=== PATIENT | female | born 1950 | race Asian ===

== ENCOUNTER 2023-02-20 10:48 | Outpatient (CLI) | payer MEDICARE, SELFPAY ==
[2023-02-20 11:16] LABS: Basophils Percent Auto 0.4 % (0.2-1.2); Eosinophils Percent Auto 0.4 % (0-4.4); Hemoglobin 14.2 g/dL (12.0-15.0); Immature Granulocyte Absolute 0.02 K/mm3 (0.00-0.031); Immature Granulocyte Percent A 0.3 % (0-0.5); Lymphocytes Absolute Auto 1.44 K/mm3 (0.9-3.2); Lymphocytes Percent Auto 20.8 % (18.3-44.2); Mean Corpuscular HGB Conc 31.6 g/dl (32-36); Mean Corpuscular Volume 101.4 fl (80-100); Mean Platelet Volume 9.1 fl (7.4-10.4); Monocytes Absolute Auto 0.5 K/mm3 (0.1-0.6); Monocytes Percent Auto 7.4 % (2.6-8.5); Neutrophils Absolute Auto 4.9 K/mm3 (1.3-6.7); Neutrophils Percent Auto 70.7 % (45.5-73.1); Platelet Count Result 190 k/mm3 (150-375); Red Blood Count 4.44 M/mm3 (4.2-5.4); Red Cell Distribution Width 13.6 % (11.5-14.5); White Blood Count 6.9 K/mm3 (4.5-10.0)
[2023-02-20 11:32] LABS: Alanine Aminotransferase 39 U/L (6-35); Alkaline Phosphatase 101 U/L (38-126); Anion Gap 0 mmol/L (8-16); Aspartate Amino Transferase 40 U/L (14-36); Bilirubin,Total 0.6 mg/dL (0.2-1.3); Blood Urea Nitrogen 14 mg/dL (7-17); Calcium 8.7 mg/dL (8.4-10.2); Carbon Dioxide 35 mmol/L (22-30); Chloride 107 mmol/L (98-107); Cholesterol 209 mg/dL (0-200); Estimated Glomerular Filt Rate > 60; Glucose 96 mg/dL (65-110); HDL Direct 99 mg/dL; Potassium 4.4 mmol/L (3.4-5.0); Sodium 142 mmol/L (137-145); Triglycerides 49 mg/dL (<150)
[2023-02-20 11:43] LABS: LDL Cholesterol Direct 76 mg/dL
[2023-02-20 12:02] LABS: Thyroid Stimulating Hormone 0.859 uIU/mL (0.465-4.680)
[2023-02-20 12:46] LABS: Appearance Urine Clear (Clear); Bacteria Urine None Seen /hpf; Bilirubin Urine Negative (Negative); Blood Urine Negative (Negative); Color Urine Yellow (Yellow); Glucose Urine UA Negative (Negative); Ketones Urine Negative (Negative); Leukocyte Esterase Ur 1+ LEU/UL (NEGATIVE); Need Manual Microscopic Reviewed; Nitrate Urine Negative (Negative); Non Pathogenic Casts 0-2; Protein Urine Negative (Negative); RBC Urine 0-2 /hpf (0-2); Specific Grav Ur 1.017 (1.001-1.035); Squamous Epithelial Cell Urine None seen /hpf (Few); Urobilinogen Urine 0.2 mg/dL (<2.0); WBC Urine 0-5 /hpf (0-3); pH Urine 6.5 (5.0-9.0)
[2023-02-20 12:48] LABS: Add Urine Microscopic? YES
== END 2023-02-20 10:49 | disposition home or self-care (01) ==
LOC: ANHLAB 10:51
PROVIDERS: PCP Family Medicine; Visit Provider Nurse Practitioner Family
DX: Z13.6 Encounter for screening for cardiovascular disorders (principal); E55.9 Vitamin D deficiency, unspecified; F41.9 Anxiety disorder, unspecified; R41.3 Other amnesia; I10 Essential (primary) hypertension; Z13.29 Encounter for screening for other suspected endocrine disorder
CPT/HCPCS: 36415; 80048; 80061; 80076; 81001; 82306; 84443; 85025

== ENCOUNTER 2023-05-07 16:31 | Outpatient (CLI) | payer MEDICARE, SELFPAY ==
--- NOTE | 2023-05-07 16:39 | ECG_ITS ---
Measurements Intervals [place] Rate: 65 P: 81 WV: 154 QRS: 25 QRSD: 84 T: 54 QT: 397 QTc: 416 Interpretive Statements SINUS RHYTHM LEFT ATRIAL ENLARGEMENT [-0.15mV P WAVE IN V1/V2] INCOMPLETE RIGHT BUNDLE BRANCH BLOCK NO PREVIOUS ECG AVAILABLE FOR COMPARISON Electronically Signed On 05-09-2023 14:19:19 [employer] by Rusty Felton M.D.
== END 2023-05-07 16:32 | disposition home or self-care (01) ==
PROVIDERS: PCP Family Medicine; Visit Provider Nurse Practitioner Family
DX: M79.603 Pain in arm, unspecified (principal); R00.2 Palpitations; Z72.0 Tobacco use; I45.19 Other right bundle-branch block; I51.7 Cardiomegaly
CPT/HCPCS: 93005

== ENCOUNTER 2023-09-07 12:49 | Outpatient (CLI) | payer MEDICARE, SELFPAY ==
--- NOTE | ~2023-09-07 | DEXA_ITS ---
Bone Density Report Name: BHAKTI MORELOS Age: 72 Sex: Female Ethnicity: Date of : 1950 Indication: osteopenia; height loss; postmenopausal Referring Provider: CANDY BARON Study: Bone densitometry was performed. Exam Date: September 07, 2023 Accession number: [id number] Bone Density: Region BMD T-score Z-score Classification AP Spine (L1, L2) 1.043 0.6 2.7 Normal Femoral Neck (Left) 0.663 -1.7 0.3 Osteopenia Total Hip (Left) 0.630 -2.6 -0.9 Osteoporosis Femoral Neck (Right) 0.678 -1.5 0.4 Osteopenia Total Hip (Right) 0.661 -2.3 -0.6 Osteopenia Total Hip Mean 0.646 -2.5 -0.8 Osteopenia World Health Organization criteria for BMD impression classify patients as: Normal (T-score at or above -1.0), Osteopenia (T-score between -1.0 and -2.5), or Osteoporosis (T-score at or below -2.5). 10-year Fracture Risk: FRAX not reported because: Some T-score for Spine Total or Hip Total or Femoral Neck at or below -2.5 Previous Exams: Region Exam Age BMD T-score BMD Change BMD Change Date g/cm2 vs Baseline vs Previous AP Spine(L1, L2) 09/07/2023 72 1.043 0.6 -0.188* -0.188* 04/16/2016 65 1.231 2.3 Total Hip(Left) 09/07/2023 72 0.630 -2.6 -0.126* -0.126* 04/16/2016 65 0.756 -1.5 Total Hip(Right) 09/07/2023 72 0.661 -2.3 -0.146* -0.146* 04/16/2016 65 0.807 -1.1 *Denotes significance at 95% confidence level, LSC for AP Spine = 0.022 g/cm2, LSC for Total Hip = 0.027 g/cm2 Clinical Information Provided by Patient: Smokes Patient maximum height was 64.75 Menopause Age: 55 Drinks caffeinated beverages Onset of menses at age 13.5 Number of children 4 Impression: The patient has osteoporosis, based on the Left Total Hip T-score. The patient has risk factors, including: smoking. The BMD for the AP Spine(L1, L2) decreased, changing by -0.188 since the last DXA exam. The BMD for the Total Hip(Left) decreased, changing by -0.126 since the last DXA exam. The BMD for the Total Hip(Right) decreased, changing by -0.146 since the last DXA exam. Discussion: INCREASED RISK OF FRACTURE. BONE DENSITY IS UNDESIRABLY LOW AT ONE OR MORE SKELETAL SITES, CONSISTENT WITH POSTMENOPAUSAL OSTEOPOROSIS. This patient's lowest T-score meets the World Health Organization's (WHO) criteria for osteoporosis at one or more sites (T-score -2.5 or below). In untreated patients, the risk of osteoporotic fracture increas
--- NOTE | ~2023-09-07 | MM_ITS ---
EXAMINATION: MM screening simona BI w rafal HISTORY: Screening mammogram TECHNIQUE: Craniocaudal and mediolateral oblique 3-D tomosynthesis images were obtained and synthetic 2-D images were generated. CAD analysis was submitted and interpreted. COMPARISON: 04/16/2016 bilateral diagnostic mammogram and complete bilateral breast ultrasound examina tion BREAST PARENCHYMAL COMPOSITION: The breasts are extremely dense, which lowers the sensitivity of mamm ography. FINDINGS: There is no evidence of suspicious mass, calcification, or architectural distortion to sugg est malignancy in either breast. There has been no suspicious interval change. IMPRESSION: 1. No mammographic evidence of malignancy. 2. Recommend routine screening mammography in one year. BI-RADS Category 1: Negative Reviewed, dictated and finalized at location A.
== END 2023-09-07 12:50 ==
PROVIDERS: PCP Nurse Practitioner Family; Visit Provider Nurse Practitioner Family
DX: Z12.31 Encounter for screening mammogram for malignant neoplasm of breast (principal); Z78.0 Asymptomatic menopausal state; M85.89 Other specified disorders of bone density and structure, multiple sites; M81.0 Age-related osteoporosis without current pathological fracture
CPT/HCPCS: 77063; 77067; 77080

== ENCOUNTER 2023-09-16 19:49 | Emergency (ER) | payer MEDICARE, SELFPAY ==
--- NOTE | ~2023-09-16 | CT_ITS ---
EXAMINATION: CT brain wo con DATE: 09/16/2023 20:46 INDICATION: Head injury TECHNIQUE: Computed tomography (CT) of the head was performed without intravenous contrast. Sagittal and coronal reconstructions were performed. The mA was adjusted according to patient size. Iterative reconstruction technique was employed. The dose-length product was 605.33 mGy-cm. COMPARISON: None FINDINGS: No acute intracranial hemorrhage, acute infarction or abnormal extra axial fluid collection. There is mild scattered white matter hypoattenuation consistent with chronic small vessel ischemic disease. S ymmetric prominence of the sulci consistent with mild age-appropriate diffuse cerebral volume loss. Ventricles are normal and symmetric. No mass/mass effect. The orbits, paranasal sinuses and mastoid a ir cells are normal. IMPRESSION: 1. No fracture or acute intracranial process. 2. Age-related changes including mild diffuse volume loss and mild scattered white matter hypoattenua tion consistent with chronic small vessel ischemic disease. Reviewed, dictated and finalized at location A. IMPRESSION: 1. No fracture or acute intracranial process. 2. Age-related changes including mild diffuse volume loss and mild scattered wh ite matter hypoattenuation consistent with chronic small vessel ischemic diseas e.
[2023-09-16 20:01] VITALS: BP 144/78; PULSE 93; RESP 20; TEMP 36.6; O2SAT 100
--- NOTE | 2023-09-16 21:13 | ED.HEATRA ---
HPI - Head Injury General Chief complaint: Head Injury Stated complaint: ALTERED MENTAL STATUS Time Seen by Provider: 09/16/23 21:06 History of Present Illness HPI Narrative: Pt was pulling plae off of shelf and it got stuck and she gave it a tug and it flew off and struck her inthe nose. Pt states it bled a little but stopped. Pt denies LOC. Related Data Allergies Allergy/AdvReac Type Severity Reaction Status Date / Time Sulfa (Sulfonamide Allergy Mild unknown Verified 09/16/23 20:10 Antibiotics) HYDROCODONE BIT Allergy Unknown Unknown Uncoded 09/16/23 20:10 Review of Systems Review of Systems: All systems reviewed & are unremarkable except as noted in HPI and below PMFSH Past Medical History Medical History (Updated 09/16/23 @ 21:22 by Savana Sutton III, DO) Abdominal pain Anxiety Arm pain Body mass index (BMI) less than 16.5 Confusion Dementia Encounter to establish care Memory change Nasal congestion Osteopenia Osteoporosis Palpitation Postmenopausal Screening for breast cancer Screening for colon cancer Screening for lung cancer Screening for osteoporosis TMJ (temporomandibular joint disorder) Tobacco abuse Vitamin D deficiency Surgical History Surgical History History of cholecystectomy Family History Family History Grandparent Cancer Mother Cancer Social History Social History Smoking packs per day: 0.5 Smoking cigarettes per day: 10.0 Years smoked: 50 Smoking pack-years: 25.00 Smoking status: Current every day smoker Tobacco type: cigarettes Alcohol intake: current Alcohol use details: Socially Substance use: never Exam Const: General: healthy appearing and no acute distress Nutritional Appearance: well nourished Orientation/consciousness: patient oriented x3 Limitations: no limitations HENMT: Face/Nose/Sinus: Normal nares present Other: pt has small abrasion to bridge of nose. Pt has minimal swelling. there is no septal hematoma Eyes: Conjunctivae: conjunctivae normal Pupils: Equal, round and reactive pupils present EOM: EOMs intact bilaterally Neck: Neck: normal visual inspection Resp: Effort & Inspection: normal respiratory effort Auscultation: clear to auscultation bilaterally Cardio: Rate: regular rate Rhythm: regular rhythm GI: GI Palp: Yes Soft to palpation Auscultation: normal bowel sounds Skin: General skin exam: normal color Rashes: no rashes (small areas of erythematous blancable papular lesions to legs) Neuro: General: patient oriented x3, moves all extremities, no meningeal signs and no focal motor deficits Speech: normal speech Extrem: General: normal to inspection and no clubbing, cyanosis or edema Psych: Mental Status: mental status grossly normal Affect: normal affect Attitude: cooperative Course Vital Signs Vital signs: Vital Signs Temperature 97.8 F 09/16/23 20:01 Pulse Rate 93 09/16/23 20:01 Respiratory Rate 20 09/16/23 20:01 Blood Pressure 144/78 H 09/16/23 20:01 Pulse Oximetry 100 09/16/23 20:01 Oxygen Delivery Room Air 09/16/23 20:01 Temperature 97.8 F 09/16/23 20:01 Pulse Rate 69 09/16/23 21:33 Respiratory Rate 17 09/16/23 21:33 Blood Pressure 129/73 09/16/23 21:33 Pulse Oximetry 100 09/16/23 21:33 Oxygen Delivery Room Air 09/16/23 20:01 MDM - Head Injury MDM Narrative Medical decision making narrative: ct head neg no obvious nasal fx, pt can take tylenol or motrin for pain, will prescribe steroids for itchy rash on legs Discharge Plan Discharge Clinical Impression: Rash, Contusion of nose Patient Disposition: Home, Self-Care Condition: Stable Instructions: Antibiotic Form, Contusion in Adults (ED) Prescriptions: New triamcinolone acetonide 0.1 % cream 1 applic top
[2023-09-16 21:33] VITALS: BP 129/73; PULSE 69; RESP 17; O2SAT 100
== END 2023-09-16 22:25 | disposition home or self-care (01) ==
PROVIDERS: Emergency Provider Emergency Medicine; PCP Nurse Practitioner Family
DX: S00.33XA Contusion of nose, initial encounter (principal); R21 Rash and other nonspecific skin eruption; F03.90 Unspecified dementia, unspecified severity, without behavioral disturbance, psychotic disturbance, mood disturbance, and anxiety; E55.9 Vitamin D deficiency, unspecified; M85.80 Other specified disorders of bone density and structure, unspecified site; M81.0 Age-related osteoporosis without current pathological fracture; F17.210 Nicotine dependence, cigarettes, uncomplicated; Z90.49 Acquired absence of other specified parts of digestive tract; W20.8XXA Other cause of strike by thrown, projected or falling object, initial encounter
CPT/HCPCS: 70450; 99284

== ENCOUNTER 2024-05-02 16:23 | Emergency (ER) | payer MEDICARE, SELFPAY ==
--- NOTE | ~2024-05-02 | XR_ITS ---
HISTORY: left hip, PSIS pain COMPARISON: None TECHNIQUE: 2 views of the left hip and a single frontal view of the pelvis was performed FINDINGS: No acute displaced fracture is appreciated. Severe degenerative disease is identified within the bilateral femoral acetabular joint spaces with s uperior lateral and inferior medial sclerosis and osteophyte formation. Overlying bowel gas fluid is adequate evaluation of the bone mineralization, specifically within the left hemipelvis. Sclerosis and joint space widening are identified within the bilateral sacroiliac joint spaces. Significant degenerative disease is also noted within the lower lumbar spine and pubic symphysis. IMPRESSION: Severe degenerative disease without acute displaced fracture, as detailed above. Reviewed, dictated and finalized at location A. LEY WORKER IMPRESSION: Severe degenerative disease without acute displaced fracture, as d etailed above.
--- NOTE | ~2024-05-02 | XR_ITS ---
HISTORY: dorsal foot pain COMPARISON: None TECHNIQUE: 3 views of the right foot were performed FINDINGS: No acute fracture or dislocation is appreciated. Moderate degenerative disease is noted. The base of the fifth metatarsal is intact. No calcaneal spur is noted. Ossification of the insertion of the Achilles tendon is noted No significant soft tissue swelling is present. IMPRESSION: Degenerative disease, without acute fracture Reviewed, dictated and finalized at location A. ILLERY WORKER
[2024-05-02 17:02] VITALS: BP 135/71; PULSE 78; RESP 18; TEMP 36.5; O2SAT 100
--- NOTE | 2024-05-02 17:37 | ED_ITS ---
HPI - Back Pain/Injury General Chief Complaint: Back Pain/Injury Stated Complaint: back and hip pain. hit it on something. dementia Time Seen by Provider: 05/02/24 17:05 History of Present Illness HPI Narrative: 73-year-old female history of osteoporosis and dementia presents to emergency department with son at bedside for left hip pain and right foot pain. Patient's son states the patient was complaining of left hip pain a couple days ago but has been ambulatory without difficulty. Today while they were at the store the patient bumped her left hip into a pole which increased her pain and now she is having difficulty walking. She states the pain is in the posterior lateral asp ect of her left hip, worse with walking. Patient also states today while he was putting on the patient's right shoe, she was complaining of pain to the right foot. She denies injury trauma to the foot. She states it just feels ?tight?. She denies any falls or head injury. Denies any neck pain. No fever or other complaints. Related Data Home Medications ?Medication ?Instructions ?Recorded ?Confirmed ?Last Taken ?Type magnesium oxide PO 02/03/24 02/03/24 Unknown History Allergies Allergy/AdvReac Type Severity Reaction Status Date / Time Sulfa (Sulfonamide Allergy Mild unknown Verified 05/02/24 16:25 Antibiotics) HYDROCODONE BIT Allergy Unknown Unknown Uncoded 05/02/24 16:25 Review of Systems Review of Systems: All systems reviewed & are unremarkable except as noted in HPI and below PMFSH Past Medical History Medical History Urinary urgency Muscle cramping Multiple open wounds of lower leg Lower extremity edema Osteoporosis Screening for lung cancer Abdominal pain Arm pain Palpitation Dementia Postmenopausal Osteopenia Nasal congestion Tobacco abuse Screening for colon cancer Screening for osteoporosis Screening for breast cancer Vitamin D deficiency Body mass index (BMI) less than 16.5 Encounter to establish care Memory change Confusion Anxiety TMJ (temporomandibular joint disorder) Surgical History Surgical History History of cholecystectomy Family History Family History Grandparent Cancer Mother Cancer Social History Social History Smoking packs per day: 0.5 Smoking cigarettes per day: 10.0 Years smoked: 50 Smoking pack-years: 25.00 Smoking status: Current every day smoker Tobacco type: cigarettes Alcohol intake: current Alcohol use details: Socially Substance use: never Exam Narrative: GENERAL: Well-appearing, well-nourished, and in no acute distress. HEAD: Normocephalic, atraumatic. EYES: EOMI. ENT: Nares clear, no rhinorrhea or epistaxis. Mucous membranes moist. NECK: Supple. CHEST: Clear to auscultation. No respiratory distress. HEART: Regular rate and rhythm. No murmur heard. Normal peripheral pulses. EXTREMITIES: LLE: Tenderness to the left posterior lateral hip and pelvis overlying the PSIS with no obvious deformity, no contusion or overlying skin changes. Full active and passive range of motion of left leg without difficulty. DP pulse 2 +. Sensation intact. Diffuse minimal tenderness to the dorsum of the right foot with no overlying skin changes, ecchymosis or deformities. Patient able to wiggle toes. DP pulse 2 +. Cap refill less than 2. SKIN: Warm, dry, no rash. NEURO: No focal deficits. Alert and oriented x3 Course Vital Signs Vital signs: Vital Signs Temperature 97.7 F 05/02/24 17:02 Pulse Rate 78 05/02/24 17:02 Respiratory Rate 18 05/02/24 17:02 Blood Pressure 135/71 05/02/24 17:02 Pulse Oximetry 100 05/02/24 17:02 Oxygen Delivery Room Air 05/02/24 17:02 Temperature 97.7 F 05/02/24 17:02 Pulse Rate 78 05/02/24 17:02 Respiratory Rate 18 05/02/24 17:02 Blood Pressure 135/71 05/02/24 17:02 Pulse Oximetry 100 05/02/24 17:02 Oxygen Delivery Room Air 05/02/24 17:02 MDM - Back Pain/Injury MDM Narrative Medical decision making narrative: 73-year-old female presents emergency department for left hip pain and right foot pain. See HPI for further history. Triage vitals are stable. Exam is significant for the above. Patient is afebrile nontoxic appearing. She is neurovascularly intact. No obvious deformity or overlying skin changes. X-ray of the left hip and pelvis shows no fracture. There is moderate arthritic changes and osteopenia. X-ray of the foot shows a no acute fracture or malalignment. There is degenerative changes of the 1st and hallux valgus. Patient and family updated on results. Patient is given Tylenol with improvement. She is ambulatory in the ED. Feel she is safe to be discharged home. Advised follow-up with PCP and discuss supportive care. Tylenol sent to pharmacy. Advised strict ED return precautions. She and her son are agreeable with the plan verbalized understanding. Discharged in stable condition. Discharge Plan Discharge Clinical Impression: Acute pain of left hip, Acute pain of right foot Patient Disposition: Home, Self-Care Condition: Stable Instructions: Antibiotic Form, Arthralgia (ED), Hip Pain (ED) Additional Instructions: You were evaluated in the emergency department for left and right foot pain. Exam is reassuring. The x-ray showed no broken bones with do show arthritis and degenerative changes. Please take Tylenol 6 pain PCP. Return to the emergency department if you develop any new or worsening symptoms. Patient Language: Argentine Prescriptions: New acetaminophen 500 mg capsule 500 mg PO Q6H PRN (Reason: pain) Qty: 10 0RF No Action donepezil [Aricept] 10 mg tablet 10 mg PO QHS Qty: 30 11RF fluticasone propionate [Flonase Allergy Relief] 50 mcg/actuation spray,suspension 1 spray intranasal BID Qty: 16 11RF Rx Instructions: administer into each nostril hydrochlorothiazide 12.5 mg tablet 12.5 mg PO DAILY PRN (Reason: edema) Qty: 30 2RF magnesium oxide PO triamcinolone acetonide 0.1 % cream 1 applic topical BID Qty: 15 0RF alendronate 70 mg tablet 70 mg PO WEEKLY Qty: 12 3RF mupirocin 2 % ointment 1 applic topical BID Qty: 30 1RF Follow-up/Referrals: Angeline Garrido NP [Primary Care Provider] -
[2024-05-02] MEDS: ACETAMINOPHEN 325 MG TABLET 650 MG PO (17:43)
== END 2024-05-02 19:10 | disposition home or self-care (01) ==
PROVIDERS: Emergency Provider Physician Assistant; PCP Nurse Practitioner Family
DX: M25.552 Pain in left hip (principal); M79.671 Pain in right foot; F17.210 Nicotine dependence, cigarettes, uncomplicated; F41.9 Anxiety disorder, unspecified
CPT/HCPCS: 73502; 73630; 99284; A9270

== ENCOUNTER 2024-10-17 21:08 | Emergency (ER) | payer MEDICARE, SELFPAY ==
--- NOTE | ~2024-10-17 | XR_ITS ---
XR hip LT 2V w AP pelvis Ordering provider: Sissy Garcia MD History: . fall . Comparison: None. FINDINGS: BONES: No acute fracture or dislocation. HIP JOINT SPACES: Bilateral severe osteoarthritic changes. SACROILIAC JOINT SPACES/LUMBAR SPINE: The sacroiliac joint spaces shows bilateral sacroiliitis.. Mild degenerative changes of the visualized lower lumbar spine. PUBIC SYMPHYSIS: Pubic symphysitis. SOFT TISSUES: Normal. IMPRESSION: No acute osseous abnormality pelvis and left hip. If still suspicious CT is advised. Bilateral severe hip osteoarthritic changes. Bilateral sacroiliacs. Severe degenerative changes of the spine. Reviewed, dictated and finalized at location A. IMPRESSION: No acute osseous abnormality pelvis and left hip. If still suspicious CT is adv ised. Bilateral severe hip osteoarthritic changes. Bilateral sacroiliacs. Severe degenerative changes of the spine.
--- NOTE | 2024-10-17 21:22 | PC.NURSE ---
Pt to XR at this time.
[2024-10-17 21:28] VITALS: BP 134/77; PULSE 80; RESP 20; TEMP 36.3; O2SAT 98
--- NOTE | 2024-10-17 21:50 | ED_ITS ---
HPI - General Adult General Chief complaint: Extremity Injury, Lower Stated complaint: Left hip hurting-fell during the night Time Seen by Provider: 10/17/24 21:14 History of Present Illness HPI narrative: Patient is a 74-year-old female who presents the emergency department this evening status post a fall that occurred yesterday. Patient was complaining of left hip pain, however, she did walk into the emergency department and has not had any issues ambulating. Patient states that she start on chair in her closet and was trying to grab something from the shelf and waned she did she was getting ready to step down and took a misstep. Patient states that when she fell backwards she did land on her feet but she was twisted to her left side and she feels as though she tweaked her left hip. Patient states that a part of the shelf did hit her forehead that when she fell backwards landing on her feet she did not hit her head. Denies any blood thinner use. Denies any symptoms at this time including any headaches, dizziness, blurry vision, focal weakness, numbness and tingling. No additional symptoms or concerns at this time. Related Data Home Medications ?Medication ?Instructions ?Recorded ?Confirmed ?Last Taken ?Type magnesium oxide PO 02/03/24 02/03/24 Unknown History Allergies Allergy/AdvReac Type Severity Reaction Status Date / Time Sulfa (Sulfonamide Allergy Mild unknown Verified 05/02/24 16:25 Antibiotics) HYDROCODONE BIT Allergy Unknown Unknown Uncoded 05/02/24 16:25 Review of Systems Review of Systems: All systems are reviewed and are negative unless stated otherwise in the HPI. [facility] Past Medical History Medical History Urinary urgency Muscle cramping Multiple open wounds of lower leg Lower extremity edema Osteoporosis Screening for lung cancer Abdominal pain Arm pain Palpitation Dementia Postmenopausal Osteopenia Nasal congestion Tobacco abuse Screening for colon cancer Screening for osteoporosis Screening for breast cancer Vitamin D deficiency Body mass index (BMI) less than 16.5 Encounter to establish care Memory change Confusion Anxiety TMJ (temporomandibular joint disorder) Surgical History Surgical History History of cholecystectomy Family History Family History Grandparent Cancer Mother Cancer Social History Social History Smoking packs per day: 0.5 Smoking cigarettes per day: 10.0 Years smoked: 50 Smoking pack-years: 25.00 Smoking status: Current every day smoker Tobacco type: cigarettes Alcohol intake: current Alcohol use details: Socially Substance use: never Exam Narrative: General: Alert, awake, afebrile, in no acute distress. HEENT: PERRL, no rhinorrhea, no post nasal drip, oropharynx clear. Neck: Trachea midline, no JVD, no lymphadenopathy. Cardiovascular: Regular rate and rhythm, no murmurs, rubs or gallops, no peripheral edema. Respiratory: Clear to auscultation bilaterally, no tachypnea, no wheezing, no rhonchi, no rubs, no respiratory distress. Abdomen: Soft, nontender, nondistended, no rebound, no guarding, no peritoneal signs. Musculoskeletal: No joint swelling or deformity, normal muscle tone. Skin: No rashes or petechia, no signs of infection. Psychiatric: Alert and oriented, normal behavior and judgment for situation. Neurological: Alert and oriented to person, place, and time. Follows all commands. No focal deficits, 5/5 motor strength in the bilateral lower inch extremity, sensation intact and equal in the bilateral upper and lower extremity, cranial nerves 2-12 grossly intact speech is clear and fluent, gait is intact and normal. Course Vital Signs Vital signs: Vital Signs Temperature 97.3 F L 10/17/24 21: Pulse Rate 80 10/17/24 21:28 Respiratory Rate 20 10/17/24 21:28 Blood Pressure 134/77 10/17/24 21:28 Pulse Oximetry 98 10/17/24 21:28 Temperature 97.3 F L 10/17/24 21: Pulse Rate 80 10/17/24 21:28 Respiratory Rate 20 10/17/24 21: Blood Pressure 134/77 10/17/24 21: Pulse Oximetry 98 10/17/24 21:28 Medical Decision Making MDM Narrative Medical decision making narrative: The patient was evaluated by myself in the emergency department. History is obtained from patient who is an independent historian and physical exam was performed. External medical records were reviewed at this time. Imaging studies obtained included left hip with AP pelvis which was independently interpreted by me revealing no acute process, no fractures or dislocations, which is pending final radiology interpretation. Differential diagnosis considerations include hip fracture/dislocation, musculoskeletal strain. Comorbidities impacting this visit include none. I have evaluated and discussed social determinants of health with the patient that could potentially impact subsequent diagnosis and treatment plans. On repeat assessment of the patient, reevaluation revealed that the patient is doing well and is in no acute distress. Patient symptoms have improved since she arrived to our emergency department. Repeat vital signs were all reviewed and noted to be stable. Differential diagnosis and treatment plan were discussed with the patient at bedside. Patient agrees with discussion and after shared medical decision making agrees with discharge. All questions were answered to the patient's satisfaction. Patient will follow up with her PCP in 3-5 days. Patient was provided with strict return precautions and instructed to return to the emergency department if any new or worsening symptoms develop. The patient was discharged in stable condition. Vital Signs Vital Signs: Vital Signs Temperature 97.3 F L 10/17/24 21:28 Pulse Rate 80 10/17/24 21:28 Respiratory Rate 20 10/17/24 21:28 Blood Pressure 134/77 10/17/24 21:28 Pulse Oximetry 98 10/17/24 21:28 Temperature 97.3 F L 10/17/24 21:28 Pulse Rate 80 10/17/24 21:28 Respiratory Rate 20 10/17/24 21:28 Blood Pressure 134/77 10/17/24 21:28 Pulse Oximetry 98 10/17/24 21:28 Discharge Plan Discharge Clinical Impression: Fall, Acute pain of left hip Patient Disposition: Home Condition: Improved Instructions: Antibiotic Form Additional Instructions: Please follow up with your family doctor within the next 3-5 days. Return to ED if worse. Patient Language: Afghan Prescriptions: No Action fluticasone propionate [Flonase Allergy Relief] 50 mcg/actuation spray,suspension 1 spray intranasal BID Qty: 16 11RF Rx Instructions: administer into each nostril magnesium oxide PO triamcinolone acetonide 0.1 % cream 1 applic topical BID Qty: 15 0RF acetaminophen 500 mg capsule 500 mg PO Q6H PRN (Reason: pain) Qty: 10 0RF alendronate 70 mg tablet 70 mg PO WEEKLY Qty: 12 3RF donepezil [Aricept] 10 mg tablet 10 mg PO QHS Qty: 90 3RF hydrochlorothiazide 12.5 mg tablet 12.5 mg PO DAILY PRN (Reason: edema) Qty: 30 2RF mupirocin 2 % ointment 1 applic topical BID Qty: 30 1RF Follow-up/Referrals: Angeline Garrido NP [Primary Care Provider] - 3 Days Time of Disposition: 21:53
== END 2024-10-17 22:11 | disposition home or self-care (01) ==
PROVIDERS: Emergency Provider Emergency Medicine; PCP Nurse Practitioner Family
DX: S79.912A Unspecified injury of left hip, initial encounter (principal); F03.90 Unspecified dementia, unspecified severity, without behavioral disturbance, psychotic disturbance, mood disturbance, and anxiety; E55.9 Vitamin D deficiency, unspecified; M81.0 Age-related osteoporosis without current pathological fracture; M85.80 Other specified disorders of bone density and structure, unspecified site; F41.9 Anxiety disorder, unspecified; F17.210 Nicotine dependence, cigarettes, uncomplicated; Z90.49 Acquired absence of other specified parts of digestive tract; Z79.899 Other long term (current) drug therapy; W07.XXXA Fall from chair, initial encounter
CPT/HCPCS: 73502; 99283

== ENCOUNTER → 2024-10-26 11:52 | Outpatient (CLI) | payer MEDICARE, SELFPAY ==
--- NOTE | ~2024-10-26 | XR_ITS ---
3 VIEWS NASAL BONES Ordering provider: Angeline Garrido NP History: . J34.89 - Other specified disorders of nose and nasal sinuses . Comparison: None. FINDINGS: Possible fracture in the tip of the distal left nasal bone. Clinical correlation for tender ness in the area advised. Mild right nasal septal Soft tissues are normal. IMPRESSION: Possible fracture in the tip of the left nasal bone. Reviewed, dictated and finalized at location A.
== END ==
PROVIDERS: PCP Nurse Practitioner Family; Visit Provider Nurse Practitioner Family
DX: J34.89 Other specified disorders of nose and nasal sinuses (principal)
CPT/HCPCS: 70160

== ENCOUNTER 2024-10-26 12:50 | Outpatient (CLI) | payer MEDICARE, SELFPAY ==
[2024-10-26 13:40] LABS: Basophils Percent Auto 0.4 % (0.2-1.2); Eosinophils Absolute Auto 0.1 K/mm3 (0-0.3); Eosinophils Percent Auto 1.1 % (0-4.4); Hematocrit 44.8 % (37.0-47.0); Hemoglobin 14.1 g/dL (12.0-15.0); Immature Granulocyte Absolute 0.02 K/mm3 (0.00-0.031); Immature Granulocyte Percent A 0.4 % (0-0.5); Lymphocytes Absolute Auto 1.65 K/mm3 (0.9-3.2); Lymphocytes Percent Auto 31.6 % (18.3-44.2); Mean Corpuscular HGB Conc 31.5 g/dl (32-36); Mean Corpuscular Hemoglobin 30.9 pg (26-34); Mean Corpuscular Volume 98.2 fl (80-100); Monocytes Absolute Auto 0.6 K/mm3 (0.1-0.6); Monocytes Percent Auto 10.5 % (2.6-8.5); Neutrophils Absolute Auto 2.9 K/mm3 (1.3-6.7); Platelet Count Result 192 k/mm3 (150-375); Red Blood Count 4.56 M/mm3 (4.2-5.4); Red Cell Distribution Width 13.2 % (11.5-14.5); White Blood Count 5.2 K/mm3 (4.5-10.0)
[2024-10-26 13:50] LABS: Alanine Aminotransferase 27 U/L (6-35); Alkaline Phosphatase 124 U/L (38-126); Anion Gap 5 mmol/L (4-12); Aspartate Amino Transferase 36 U/L (14-36); Bilirubin,Total 0.6 mg/dL (0.2-1.3); Blood Urea Nitrogen 16 mg/dL (7-17); Calcium 9.2 mg/dL (8.4-10.2); Carbon Dioxide 32 mmol/L (22-30); Chloride 102 mmol/L (98-107); Cholesterol 172 mg/dL (0-200); Estimated Glomerular Filt Rate > 60; Glucose 101 mg/dL (65-110); HDL Direct 86 mg/dL; Sodium 139 mmol/L (137-145); Total Protein 7.2 g/dL (6.3-8.2); Triglycerides 77 mg/dL (<150)
[2024-10-26 14:02] LABS: Add Urine Microscopic? YES; Appearance Urine Clear (Clear); Bacteria Urine None Seen /hpf; Bilirubin Urine Negative (Negative); Blood Urine Negative (Negative); Color Urine Yellow (Yellow); Glucose Urine UA Negative (Negative); Ketones Urine Negative (Negative); LDL Cholesterol Direct 53 mg/dL; Leukocyte Esterase Ur 2+ LEU/UL (Negative); Need Manual Microscopic Reviewed; Nitrate Urine Negative (Negative); Non Pathogenic Casts 0-2; Protein Urine Negative (Negative); RBC Urine 0-2 /hpf (0-2); Specific Grav Ur 1.022 (1.001-1.035); Squamous Epithelial Cell Urine None Seen /hpf (Few); Urobilinogen Urine 0.2 mg/dL (<2.0); WBC Urine 0-5 /hpf (0-3); pH Urine 5.5 (5.0-9.0)
[2024-10-26 15:08] LABS: Thyroid Stimulating Hormone Reflex 0.728 uIU/mL (0.465-4.68)
== END 2024-10-26 12:51 | disposition home or self-care (01) ==
LOC: ANHLAB 12:53
PROVIDERS: PCP Nurse Practitioner Family; Visit Provider Nurse Practitioner Family
DX: E55.9 Vitamin D deficiency, unspecified (principal); R60.0 Localized edema; R41.3 Other amnesia; F03.90 Unspecified dementia, unspecified severity, without behavioral disturbance, psychotic disturbance, mood disturbance, and anxiety; Z13.6 Encounter for screening for cardiovascular disorders; Z13.29 Encounter for screening for other suspected endocrine disorder; Z13.0 Encounter for screening for diseases of the blood and blood-forming organs and certain disorders involving the immune mechanism
CPT/HCPCS: 36415; 70160; 80053; 80061; 81001; 82306; 84443; 85025